=== PATIENT | male | born 1970 | race Caucasian/White ===

== ENCOUNTER 2017-08-09 09:07 | Emergency (ER) | payer OTHER ==
[~2017-08-09] VITALS: Ht 177.8 cm; Wt 87.4 kg
[~2017-08-09 09:07] MED LIST: METAXALONE800 MG NG; OXYCODONE-APAP1 EAC5 PO; TYLOX 5-500 CA1 EACH PO
[2017-08-09 10:05] LABS: BASOPHIL (%) 0.5 % (0-1); BASOPHIL COUNT 0.1 K/uL (0-0.1); EOSINOPHIL (%) 2.3 % (0-5); EOSINOPHIL COUNT 0.2 K/uL (0-0.3); HEMATOCRIT 45.1 % (38.0-50.0); IMMATURE GRANULOCYTE (%) 0.4 % (0.0-0.7); LYMPHOCYTE (%) 31.5 % (15-42); LYMPHOCYTE COUNT 3.2 K/uL (1.0-2.8); MCH 33.7 PG (29.0-34.0); MCHC 35.5 G/DL (30.0-36.0); MCV 94.9 FL (86-99); MONOCYTE (%) 9.6 % (3-12); NEUTROPHIL (%) 55.7 % (45-76); NEUTROPHIL COUNT 5.7 K/uL (1.8-6.4); PLATELET COUNT 235 K/uL (156-360); RBC DIS.WIDTH-SD 45.8 % (39-53); RED BLOOD COUNT 4.75 M/uL (4.00-5.50); WHITE BLOOD COUNT 10.2 K/uL (4.1-10.2)
[2017-08-09 10:15] LABS: CHLORIDE 104 mEq/L (99-109); POTASSIUM 3.8 mEq/L (3.7-5.4); SODIUM 136 mEq/L (136-147)
[2017-08-09 10:16] LABS: GLUCOSE 100 mg/dL (70-99)
[2017-08-09 10:20] LABS: CREATININE 0.8 mg/dL (0.6-1.3); GFR ESTIMATE (CALCULATED) > 59 mL/min/ (58.99-99999)
[2017-08-09 10:21] LABS: UREA NITROGEN (BUN) 7 mg/dL (9-23)
[2017-08-09] MEDS ORDERED: PERCOCET 5/31 TABLET PO (12:55)
[2017-08-09] MEDS ORDERED: CLEOCIN300 MG PO (12:55)
[2017-08-09 13:13] VITALS: BP 157/109
== END 2017-08-09 13:32 | disposition home or self-care (01) ==
LOC: EME 09:07
PROVIDERS: Emergency Medicine
DX: R10.32 Left lower quadrant pain (principal); L03.315 Cellulitis of perineum; I10 Essential (primary) hypertension; F17.200 Nicotine dependence, unspecified, uncomplicated
CPT/HCPCS: 74177; 80048; 85025; 99281; 99284; J7030